=== PATIENT | male | born 1950 | race Caucasian/White ===

== ENCOUNTER → 2017-12-12 | Outpatient (CLI) | payer MEDICARE, OTHER ==
--- NOTE | 2017-12-12 16:32 | US ---
EXAM DESCRIPTION: Abdomen,Complete CLINICAL HISTORY: 67 years Male, RUQ PAIN COMPARISON: None available. TECHNIQUE: Multiple transverse and longitudinal static sonographic images of the upper abdomen were obtained. FINDINGS: Visualized portions of the pancreas appear normal. The liver demonstrates increased echogenicity representing fatty infiltration versus parenchymal disease. No focal masses are identified sonographically. The gallbladder is contracted with few gallstones. No evidence of sonographic Carrillo sign. No evidence of wall thickening or hyperemia or pericholecystic fluid. The common duct is nondilated and measures 4.3 mm. The right kidney measures 12.4 x 6.5 x 6.7 cm and the left kidney measures 12.1 x 6.7 x 5.2 cm. There is a 3 mm nonobstructive calculus in the inferior pole of the left kidney. No hydronephrosis or perinephric fluid collections. The spleen measures 14.3 cm. The visualized abdominal aorta is nonaneurysmal and measures 2.5 cm in the proximal and distal portions and 2.4 cm in the midportion. Visualized portions of the inferior vena cava appears normal. IMPRESSION: Hepatic steatosis versus parenchymal disease. Contracted gallbladder with multiple gallstones despite patient's n.p.o. status. Findings could represent chronic cholecystitis. 3 mm nonobstructive calculus is noted in the inferior pole of the left kidney. Electronically signed by: Dagmar Cota MD 12/12/2017 4:31 PM CDT
== END ==
LOC: US 09:46
DX: R10.11 Right upper quadrant pain (principal); K76.0 Fatty (change of) liver, not elsewhere classified; N20.0 Calculus of kidney

== ENCOUNTER 2020-05-30 13:34 | Emergency (ER) | payer MEDICARE, OTHER ==
[2020-05-30] MEDS ORDERED: SODIUM CHLORIDE 0.9% (FLUSH) 10 ML SYG IV PRN (13:37)
[2020-05-30] MEDS ORDERED: ASPIRIN (CHEWABLE) 81 MG TAB PO ONE (13:37)
--- NOTE | 2020-05-30 14:00 | ED.PDOC ---
History of Present Illness - General Chief Complaint: Chest Pain/AL Stated Complaint: chest pressure/tightness Time Seen by Provider: 05/30/20 13:37 Source: patient, family Exam Limitations: no limitations Additional Information: complains of chest pains that started 630pm last night. Denies any history of any heart attack states that he has controlled hypertension and a history of COPD - History of Present Illness Timing/Duration: 7-24 hours Severity/Quality: moderate Location: substernal Chest Pain Radiation: back Activities at Onset: none Prior Chest Pain/Cardiac Workup: no prior chest pain Improving Factors: nothing Worsening Factors: nothing Nitro Today/Relief: no nitro taken today Associated Symptoms: denies symptoms Allergies/Adverse Reactions: Allergies NO KNOWN ALLERGY Allergy (Unverified 05/30/20 13:45) Home Medications: Ambulatory Orders Azathioprine [Imuran] 50 mg PO DAILY 05/30/20 Clonazepam 0.5 mg PO BID 05/30/20 Ezetimibe [Zetia] 10 mg PO BEDTIME 05/30/20 Pregabalin [Lyrica] 150 mg PO TID 05/30/20 Robaxin 1 tablet PO TID 05/30/20 Valsartan-Hydrochlorothiazide [Valsartan/Hydrochlorothia 320-25 mg] 1 tab PO DAILY 05/30/20 Review of Systems - Review of Systems Constitutional: Denies: chills, fever EENTM: Denies: blurred vision, tearing Respiratory: Denies: cough, orthopnea, short of breath Cardiology: States: chest pain. Denies: edema, palpitations Gastrointestinal/Abdominal: Denies: abdominal pain, diarrhea, nausea Genitourinary: Denies: discharge, frequency, hematuria Musculoskeletal: Denies: back pain, gout, joint swelling, muscle stiffness Neurological: Denies: anxiety, depressed, emotional problems Endocrine: Denies: flushing, intolerance to cold All other Systems: Reviewed and Negative Past Medical History (General) - Patient Medical History Hx of COPD: Yes Hx Cardiac Disorders: Yes Hx Congestive Heart Failure: No Hx Hypertension: Yes Surgical History: no surgical history - Vaccination History Hx Tetanus, Diphtheria Vaccination: Yes Hx Influenza Vaccination: Yes Hx Pneumococcal Vaccination: Yes - Activities of Daily Living Hospice Agency (if applicable):: None - Female History Patient is a Female of Child Bearing Age (10 -59 yrs old): No Family Medical History - Family History Mother Family History: Unknown Physical Exam - Physical Exam General Appearance: Alert, No apparent distress Eyes, Ears, Nose, Throat Exam: TMs normal, pharynx normal Neck: non-tender, full range of motion, supple Respiratory: chest non-tender, lungs clear, normal breath sounds, no respiratory distress, no accessory muscle use Cardiovascular/Chest: normal peripheral pulses, no edema, no gallop Peripheral Pulses: radial,right: 2+, radial,left: 2+, posterior tibialis,right: 2+, posterior tibialis,left: 2+ Gastrointestinal/Abdominal: normal bowel sounds, non tender, soft Extremity: normal range of motion, non-tender, normal inspection, no pedal edema Neurologic: feeder associate II-XII nml as tested, no motor/sensory deficits, alert, normal mood/affect Skin Exam: normal color, warm/dry Progress - Progress Progress: 05/30/20 14:51 The patient is a 69-year-old male that presents to the emergency department complaints of chest pain. States that this chest pain began yesterday. Heart Score is 5 CK-Mb elevated, Troponins trend down during Ed visit patient He decides to leaveAMA risk of management Discussed with patient and his including the long-term stability verbalized understanding.Lab work obtained during this visit sent to the patient's ibm bpm developer. Attempted to call patient's ibm bpm developer to set up an outpatient appointment he was never advised time the nursing staff informed office patient needs an appointment.Lab work obtained during this visit sent to the patient's ibm bpm developer. Attempted to call patient's ibm bpm developer to set up an outpatient appointment he was never advised time the nursing staff informed office patient needs an appointment. 05/30/20 16:44 - EKG/XRAY/CT EKG: Sinus, nonspecific ST T wave Chg Comments: And as rhythm heart rate 62. No ST segment elevation. Normal QRS axis QT XRAY: chest - atelectasis , emphysemia Departure - Departure Clinical Impression: Chest pain, COPD (chronic obstructive pulmonary disease) with emphysema Disposition: Left Against Medical Advice Departure Forms: ED Discharge - Pt. Copy, Patient Portal Self Enrollment Instructions: DI for Chest Pain Home Medications: Ambulatory Orders Azathioprine [Imuran] 50 mg PO DAILY 05/30/20 Clonazepam 0.5 mg PO BID 05/30/20 Ezetimibe [Zetia] 10 mg PO BEDTIME 05/30/20 Pregabalin [Lyrica] 150 mg PO TID 05/30/20 Robaxin 1 tablet PO TID 05/30/20 Valsartan-Hydrochlorothiazide [Valsartan/Hydrochlorothia 320-25 mg] 1 tab PO DAILY 05/30/20
[2020-05-30 14:06] VITALS: TEMP 97.9
[2020-05-30] MEDS ORDERED: KETOROLAC TROMETHAMINE INJ 30 MG/ML VIAL IV ONE (14:35)
--- NOTE | 2020-05-30 14:36 | RAD ---
EXAM DESCRIPTION: Chest,1 View CLINICAL HISTORY: 69 years Male, chest pain COMPARISON: None. Findings: One view(s)/radiograph(s) Cardiac silhouette and pulmonary vasculature are within normal limits. No pneumothorax. No pleural effusion. Right lung is clear. Patchy left basilar airspace disease. No acute osseous abnormality. IMPRESSION: Patchy left basilar airspace disease; atelectasis or pneumonia. Electronically signed by: Gagan Navarro MD 05/30/2020 2:34 PM AUDIO DIRECTOR
[2020-05-30] MEDS ORDERED: POTASSIUM BICARBONATE 25 MEQ TAB PO ONE (14:50)
[2020-05-30] MEDS ORDERED: MAGNESIUM SULFATE INJ 1 GM in SODIUM CHLORIDE 0.9% 100ML 100 ML IVPB ONE (14:50)
[2020-05-30 16:41] VITALS: BP 129/54; O2SAT 97
== END 2020-05-30 16:38 | disposition left against medical advice (07) ==
LOC: ER 13:34
DX: R07.9 Chest pain, unspecified (principal); J43.9 Emphysema, unspecified; I10 Essential (primary) hypertension; I51.9 Heart disease, unspecified; Z79.899 Other long term (current) drug therapy; Z20.828 Contact with and (suspected) exposure to other viral communicable diseases; Z53.29 Procedure and treatment not carried out because of patient's decision for other reasons
CPT/HCPCS: 36415; 71045; 80048; 80076; 81001; 82550; 82553; 83880; 84484; 85025; 85610; 85730; 87486; 87581; 87633; 87635; 93005; J1885; J3475; J7050